=== PATIENT | female | born 1955 | race Caucasian/White ===

== ENCOUNTER → 2017-02-09 | Outpatient (CLI) | payer OTHER | LOC: BMCIMAGING 08:38 | PROVIDERS: ATTEND Internal Medicine | DX: Z12.31 Encounter for screening mammogram for malignant neoplasm of breast (principal) | CPT/HCPCS: G0202 ==

== ENCOUNTER → 2017-06-28 | Outpatient (CLI) | payer OTHER | LOC: FIMAGING 12:59 | PROVIDERS: ATTEND Internal Medicine Pulmonary Disease | DX: S22.42XD Multiple fractures of ribs, left side, subsequent encounter for fracture with routine healing (principal) ==

== ENCOUNTER → 2018-02-05 | Outpatient (CLI) | payer OTHER | LOC: FIMAGING 14:29 | PROVIDERS: ATTEND Internal Medicine | DX: Z12.31 Encounter for screening mammogram for malignant neoplasm of breast (principal) ==